=== PATIENT | female | born 1985 | race Caucasian/White ===

== ENCOUNTER 2018-12-26 09:50 | Inpatient (IN) | payer OTHER | END 2018-12-29 12:55 | disposition home or self-care (01) | LOC: JDEL 09:50 → JLDR 10:30 → J3W 12-27 10:28 ==

== ENCOUNTER 2024-02-11 12:49 | Emergency (ER) | payer OTHER ==
[2024-02-11 12:57] VITALS: BP 105/66; PULSE 73; RESP 18; TEMP 98.3; BMI 33.8
[2024-02-11 14:21] LABS: BASO % 0.6 % (0-2.0); EOS % 4.9 % (0-4.5); HEMATOCRIT 33.7 % (32.4-45.2); HEMOGLOBIN 11.4 GM/dL (10.7-15.3); LYMPH % 26.1 % (8-40); MCH 27.3 pg (25.7-33.7); MEAN CELL VOLUME 80.4 fl (80-96); MONO % 6.3 % (3.8-10.2); NEUT % 62.1 % (42.8-82.8); PLATELET COUNT 251 10^3/uL (134-434); RBC 4.19 M/mm3 (3.60-5.2); RDW 15.1 % (11.6-15.6); WHITE BLOOD COUNT 8.9 K/mm3 (4.0-10.0)
[2024-02-11] MEDS ORDERED: ACETAMINOPHEN INJECTION 100 ML IVPB ONE (14:26)
[2024-02-11] MEDS ORDERED: ONDANSETRON 4 MG/2 ML VIAL ONE (14:26)
[2024-02-11] MEDS: SODIUM CHLORIDE 0.9% 500 ML INFUS.BAG IV ONE (14:40)
[2024-02-11 14:41] LABS: URINE APPEARANCE CLEAR; URINE BILIRUBIN NEGATIVE (NEGATIVE); URINE COLOR YELLOW; URINE GLUCOSE (UA) NEGATIVE (NEGATIVE); URINE KETONE TRACE (NEGATIVE); URINE LEUK ESTERASE NEGATIVE (NEGATIVE); URINE NITRITE NEGATIVE (NEGATIVE); URINE PROTEIN NEGATIVE (NEGATIVE); URINE UROBILINOGEN 0.2 mg/dL (0.2-1.0)
[2024-02-11] MEDS: ONDANSETRON 4 MG/2 ML VIAL IVPUSH ONE (14:41)
[2024-02-11] MEDS: ACETAMINOPHEN 1000 MG/100 ML BAG IVPB ONE (14:41)
[2024-02-11 14:42] LABS: POTASSIUM 4.8 mmol/L (3.5-5.1)
[2024-02-11 14:44] LABS: CALCIUM 8.8 mg/dL (8.5-10.1)
[2024-02-11 14:45] LABS: ALBUMIN 2.9 g/dl (3.4-5.0)
[2024-02-11 14:48] LABS: CREATININE 0.5 mg/dL (0.55-1.3)
[2024-02-11 14:49] LABS: BILIRUBIN,TOTAL 0.5 mg/dL (0.2-1)
== END 2024-02-11 16:00 | disposition home or self-care (01) ==
LOC: JER 12:49
PROC: 3E033NZ Introduction of Analgesics, Hypnotics, Sedatives into Peripheral Vein, Percutaneous Approach (ICD-10-PCS; principal; 2024-02-11)
PROC: 3E033GC Introduction of Other Therapeutic Substance into Peripheral Vein, Percutaneous Approach (ICD-10-PCS; 2024-02-11)
DX: O21.9 Vomiting of pregnancy, unspecified (principal); O26.892 Other specified pregnancy related conditions, second trimester; R10.9 Unspecified abdominal pain; Z3A.16 16 weeks gestation of pregnancy
CPT/HCPCS: 36415; 80053; 81003; 83690; 83735; 85025; 87086; 99284-25; J0131